=== PATIENT | female | born 1975 | race Caucasian/White ===

== ENCOUNTER 2020-04-01 14:41 | Outpatient (CLI) | payer BC, SELFPAY ==
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
== END 2020-04-01 14:42 | disposition home or self-care (01) ==
LOC: ANHIMG 14:50
PROVIDERS: PCP Family Medicine; Visit Provider Family Medicine
DX: S13.4XXA Sprain of ligaments of cervical spine, initial encounter (principal); M54.5 Low back pain; N20.0 Calculus of kidney
CPT/HCPCS: 72050; 72100

== ENCOUNTER 2020-05-05 15:16 | Outpatient (CLI) | payer BC, SELFPAY ==
--- NOTE | ~2020-05-05 | US_ITS ---
EXAMINATION: US renal BI EXAM DATE: 05/05/2020 15:46 INDICATION: Stone seen on x-ray. TECHNIQUE: Multiple grayscale and Doppler images of the kidneys were obtained (by a technologist who performed the scan) and subsequently reviewed. Comparison is made to prior examination from 05/07/2012 . FINDINGS: Right kidney: There is normal contour and echogenicity. It measures 11.1 x 4.5 x 5.0 centimeters. Hy perechoic focus with posterior shadowing measuring 6 mm, probably kidney stone. There is no hydrone phrosis. Left kidney: There is normal contour and echogenicity. It measures 10.6 x 6.4 x 5.6 centimeters. Hyp erechoic focus causing measuring about 7 mm, causing artifact, likely nephrolithiasis. There is no hydronephrosis. Bladder unremarkable. IMPRESSION: 1. Probable bilateral nephrolithiasis. Reviewed, dictated and finalized at location A.
== END 2020-05-05 15:17 | disposition home or self-care (01) ==
LOC: ANHIMG 15:18
PROVIDERS: PCP Family Medicine; Visit Provider Family Medicine
DX: M54.5 Low back pain (principal)
CPT/HCPCS: 76775

== ENCOUNTER 2020-12-14 15:23 | Outpatient (CLI) | payer BC, SELFPAY ==
--- NOTE | ~2020-12-14 | MR_ITS ---
EXAMINATION: MR lumbar spine wo con EXAM DATE: 12/14/2020 16:27 INDICATION: M54.5 - Low back pain low back pain. TECHNIQUE: Multi-sequential, multiplanar MR images of the lumbar spine were obtained without contrast . Sagittal T1, T2, T2 fat saturation images. Axial T2 weighted images. There is no prior study for comparison. FINDINGS: Small disc extrusions T11-12, T12-L1 and L1-2 with slight cephalad migration at all of thes e levels. Mild loss of these disc heights. The lower lumbar disc and vertebral body heights are well- maintained. The vertebral bodies are aligned in the AP dimension. The conus medullaris terminates at the L1/2 level and has normal signal intensity and morphology. There are no suspicious marrow signal abnormalities. Paraspinal soft tissue is unremarkable. Level by level evaluation: T12-L1: There is small right central disc extrusion. Facet arthropathy: Mild. Neural foraminal stenosis: No stenosis. Central canal stenosis: Mild. L1-L2: There is small right central disc extrusion. Facet arthropathy: Mild to moderate. Neural foraminal stenosis: No stenosis. Central canal stenosis: Mild. L2-L3: Disc does not extend beyond the endplate margin. Facet arthropathy: Mild to moderate. Neural foraminal stenosis: No stenosis. Central canal stenosis: No stenosis. L3-L4: Disc does not extend beyond the endplate margin. Facet arthropathy: Mild to moderate. Neural foraminal stenosis: No stenosis. Central canal stenosis: No stenosis. L4-L5: There is a mild diffuse disc bulge. Facet arthropathy: Mild to moderate. Neural foraminal stenosis: Mild left. Central canal stenosis: Mild. L5-S1: There is a mild diffuse disc bulge. Facet arthropathy: Mild. Neural foraminal stenosis: Mild right. Central canal stenosis: No stenosis. IMPRESSION: 1. Small thoracolumbar disc extrusions. 2. Mild to moderate lumbar facet arthropathy. Reviewed, dictated and finalized at location A.
== END 2020-12-14 15:24 ==
PROVIDERS: PCP Family Medicine; Visit Provider Family Medicine
DX: M47.817 Spondylosis without myelopathy or radiculopathy, lumbosacral region (principal); M48.07 Spinal stenosis, lumbosacral region; M47.815 Spondylosis without myelopathy or radiculopathy, thoracolumbar region; M48.05 Spinal stenosis, thoracolumbar region
CPT/HCPCS: 72148

== ENCOUNTER 2023-09-05 00:28 | Day surgery (SDC) | payer BC, SELFPAY ==
[2023-08-23 15:54] VITALS: BMI 26.6
--- NOTE | 2023-09-03 09:23 | SUR.PREOP ---
Patient called regarding upcoming procedure. Message left on patient's voicemail regarding preop instructions, appointment times, and procedure prep.
--- NOTE | 2023-09-04 14:31 | PM.HPGS ---
History of Present Illness History of Present Illness Consent: Risks, benefits, and alternatives have been discussed and questions answered. Patient agrees to proceed with procedure. Chief complaint: neoplasm screening Narrative: Ashley Nix is a 48 year old female referred for colon cancer screening. Review of Systems Review of Systems: All systems reviewed & are unremarkable except as noted in HPI and below PMFSH Past Medical History Medical History Hypothyroidism (acquired) Surgical History Surgical History S/P endometrial ablation Tubal ligation status Family History Family History Sibling Family history of gout Other Family history of cardiovascular disease Family history of malignant neoplasm Social History Social History Social History: Smoking status: Never smoker Second hand tobacco smoke exposure: No Alcohol intake: never Substance use: never Substance use type: does not use Living arrangements: with family Occupation/Education: occupation Gender identity (if verbalized by the patient): Female Sexual Orientation (if Verbalized by the Patient): Straight or Heterosexual Spiritual care concerns: No Meds Home Medications and Allergies Home Medications Medication Instructions Recorded Confirmed Type cholecalciferol (vitamin D3) 1,250 1,250 mcg PO WEEKLY 01/27/20 09/05/23 History mcg (50,000 unit) capsule levothyroxine 75 mcg tablet 75 mcg PO QMWF 12/07/20 09/05/23 History celecoxib 200 mg capsule 200 mg PO DAILY 08/23/23 09/05/23 History cholecalciferol (vitamin D3) 25 25 mcg PO DAILY 08/23/23 09/05/23 History mcg (1,000 unit) tablet (Vitamin D3) duloxetine 30 mg capsule,delayed 30 mg PO DAILY 08/23/23 09/05/23 History release levothyroxine 50 mcg tablet 50 mcg PO QTUTHSASU 08/23/23 09/05/23 History phentermine 37.5 mg tablet 37.5 mg PO DAILY 08/23/23 09/05/23 History rosuvastatin 10 mg tablet 10 mg PO DAILY 08/23/23 09/05/23 History Allergies Allergy/AdvReac Type Severity Reaction Status Date / Time Penicillins Allergy Severe Pruritic Verified 09/05/23 09:48 rash nifedipine Allergy Mild RASH AND Verified 09/05/23 09:48 ITCHING Exam Resp: Auscultation: clear to auscultation bilaterally Cardio: Rate: regular rate Rhythm: regular rhythm GI: GI Palp: Yes Soft to palpation and No Tenderness to palpation present (GI) Assessment and Plan Assessment and plan (1) Colon cancer screening: Code(s): Z12.11 - Encounter for screening for malignant neoplasm of colon Status: Acute Assessment and Plan: Colonoscopy with possible biopsy or polypectomy or cautery or injection of substances.
[2023-09-05 09:51] VITALS: BP 109/74; PULSE 88; RESP 16; TEMP 36.5; O2SAT 100
[2023-09-05] MEDS: LACTATED RINGERS 1,000 ML 150 ML IV CONT (10:01)
--- NOTE | 2023-09-05 10:22 | WPDANESEPPF ---
Anes - Initial Pre Proc Eval Procedure: Operation Date: 09/05/23 11:00 Proposed Procedures p Screening Colonoscopy - Harley Schultz MD Date/Time: 09/05/23 10:22 Surgeon: Harley Schultz MD Pre Op Diagnosis: neoplasm screening Patient Data Age: 48 Gender: F Height: 1.65 m Weight: 70.2 kg Last Vital Signs Temp 97.7 F 09/05/23 09:51 Pulse 88 09/05/23 09:51 Resp 16 09/05/23 09:51 BP 109/74 09/05/23 09:51 Pulse Ox 100 09/05/23 09:51 Allergies Allergy/AdvReac Type Severity Reaction Status Date / Time Penicillins Allergy Severe Pruritic Verified 09/05/23 09:48 rash nifedipine Allergy Mild RASH AND Verified 09/05/23 09:48 ITCHING Home Medications Medication Instructions Recorded Confirmed Type cholecalciferol (vitamin D3) 1,250 1,250 mcg PO WEEKLY 01/27/20 09/05/23 History mcg (50,000 unit) capsule levothyroxine 75 mcg tablet 75 mcg PO QMWF 12/07/20 09/05/23 History celecoxib 200 mg capsule 200 mg PO DAILY 08/23/23 09/05/23 History cholecalciferol (vitamin D3) 25 25 mcg PO DAILY 08/23/23 09/05/23 History mcg (1,000 unit) tablet (Vitamin D3) duloxetine 30 mg capsule,delayed 30 mg PO DAILY 08/23/23 09/05/23 History release levothyroxine 50 mcg tablet 50 mcg PO QTUTHSASU 08/23/23 09/05/23 History phentermine 37.5 mg tablet 37.5 mg PO DAILY 08/23/23 09/05/23 History rosuvastatin 10 mg tablet 10 mg PO DAILY 08/23/23 09/05/23 History Patient hx anesthesia problems: none Family hx anesthesia problems: none Results Review: All pre-operative results and documents have been reviewed as part of the pre-operative evaluation. [facility] Past Medical History Medical History Hypothyroidism (acquired) Surgical History Surgical History S/P endometrial ablation Tubal ligation status Family History Family History Sibling Family history of gout Other Family history of cardiovascular disease Family history of malignant neoplasm Social History Social History Social History: Smoking status: Never smoker Second hand tobacco smoke exposure: No Alcohol intake: never Substance use: never Substance use type: does not use Living arrangements: with family Occupation/Education: occupation Gender identity (if verbalized by the patient): Female Sexual Orientation (if Verbalized by the Patient): Straight or Heterosexual Spiritual care concerns: No Anes - Eval Final PreProcedure Day of Procedure 09/05/23 10:22 Patient weight: normal Heart: regular rate and rhythm Lungs: clear to auscultation Airway: Mallampati scale class II Neurological: alert and oriented Last oral intake: >/= 8 hours ASA classification: II Emergent: no Anesthetic plan: proceed Anesthesia type and monitoring: general GIVS and standard monitoring Results Review: All pre-operative results and documents have been reviewed as part of the pre-operative evaluation. Informed Consent: The patient's anesthetic plan and its attendant risks and benefits were discussed with the patient/family/POA. Questions were solicited and answers provided to the satisfaction of the patient/family/POA.
[2023-09-05 10:49] VITALS: BP 100/66; PULSE 72; RESP 17; O2SAT 98
[2023-09-05 10:59] VITALS: BP 103/70; PULSE 69; RESP 16; O2SAT 98
[2023-09-05 11:09] VITALS: BP 115/73; PULSE 70; RESP 17; O2SAT 100
== END 2023-09-05 11:24 | disposition home or self-care (01) ==
PROVIDERS: PCP Nurse Practitioner Family; Visit Provider Internal Medicine Gastroenterology
PROC: 0DJD8ZZ Inspection of Lower Intestinal Tract, Via Natural or Artificial Opening Endoscopic (ICD-10-PCS; CPT 45378; principal; 2023-09-05 11:00)
DX: Z12.11 Encounter for screening for malignant neoplasm of colon (principal); E03.9 Hypothyroidism, unspecified
CPT/HCPCS: 45378; J2704; J7120

== ENCOUNTER 2023-09-24 18:26 | Emergency (ER) | payer BC, SELFPAY ==
[2023-09-24] VITALS (13 sets, daily range): BP systolic 100–136; BP diastolic 63–88; PULSE 68–89; RESP 12–17; TEMP 36.4–36.7; O2SAT 94–100
--- NOTE | ~2023-09-24 | CT_ITS ---
EXAMINATION: CT abdomen pelvis wo con DATE: 09/24/2023 20:06 INDICATION: L flank pain, concern for L ureterolithiasis TECHNIQUE: Computed tomography (CT) of the abdomen and pelvis was performed without intravenous contr ast. Automated exposure control and iterative reconstruction technique were employed. The dose-length product was 541.29 mGy-cm. COMPARISON: None. FINDINGS: Lower thorax: Unremarkable Liver: Normal. Biliary/Gallbladder: Gallbladder is normal. No bile duct dilation. Pancreas: No mass or duct dilation. Spleen: Normal. Adrenals:No mass. Kidneys: Moderate left perinephric stranding. Moderate left pelviectasis and caliectasis. 6 mm stone in the proximal left ureter. Multiple additional nonobstructing bilateral calcifications. No suspicio us mass. No right hydronephrosis. GI tract: No small or large bowel dilation. Normal appendix. Mesentery/Peritoneum: No ascites, mass, or free air. Retroperitoneum: No mass. Pelvis: Mostly empty urinary bladder with mild wall thickening. Enlarged uterus. Soft Tissues: Soft tissues and body wall unremarkable. Bones: No acute osseous finding. IMPRESSION: 6 mm left proximal ureteral stone causing moderate obstructive uropathy. Cystitis versus urinary bladder wall thickening from incomplete distention. Possible uterine fibroids. Reviewed, dictated and finalized at location K. ORY LAY OUT ENGINEER
--- NOTE | ~2023-09-24 | XR_ITS ---
EXAM: XR abdomen/kub 1V DATE: 09/24/2023 22:04 HISTORY: L ureterolithiasis LT FLANK PAIN . COMPARISON: CT abdomen pelvis, same date. FINDINGS: Normal bowel gas pattern. No organomegaly. 3 x 6 cm calcification previously determined to be within the proximal left ureter. Regional bones and soft tissues normal for age. IMPRESSION: 3 x 6 mm left proximal ureteral stone. Reviewed, dictated and finalized at location K. NG MACHINE OPERATOR SEMIAUTOMATIC
[2023-09-24 18:45] LABS: Basophils Absolute Auto 0.1 K/mm3 (0.0-0.1); Basophils Percent Auto 0.7 % (0.2-1.2); Eosinophils Absolute Auto 0.2 K/mm3 (0-0.3); Eosinophils Percent Auto 2.3 % (0-4.4); Hematocrit 42.8 % (37.0-47.0); Hemoglobin 13.9 g/dL (12.0-15.0); Immature Granulocyte Absolute 0.02 K/mm3 (0.00-0.031); Immature Granulocyte Percent A 0.2 % (0-0.5); Lymphocytes Absolute Auto 1.67 K/mm3 (0.9-3.2); Lymphocytes Percent Auto 17.5 % (18.3-44.2); Mean Corpuscular HGB Conc 32.5 g/dl (32-36); Mean Corpuscular Hemoglobin 30.5 pg (26-34); Mean Corpuscular Volume 93.9 fl (80-100); Mean Platelet Volume 10.5 fl (7.4-10.4); Monocytes Percent Auto 10.8 % (2.6-8.5); Neutrophils Absolute Auto 6.5 K/mm3 (1.3-6.7); Neutrophils Percent Auto 68.5 % (45.5-73.1); Platelet Count Result 249 k/mm3 (150-375); Red Blood Count 4.56 M/mm3 (4.2-5.4); Red Cell Distribution Width 12.2 % (11.5-14.5); White Blood Count 9.5 K/mm3 (4.5-10.0)
--- NOTE | 2023-09-24 19:09 | ED.ABDPAIN ---
HPI - Abdominal Pain General Chief Complaint: Abdominal Pain Stated Complaint: left flank pain Time Seen by Provider: 09/24/23 18:39 History of Present Illness HPI narrative: 48-year-old female reports for evaluation for left-sided abdominal pain for the past 4 hours. Patient states the pain is constant and describes it as aching with intermittent sharp sensations. She is rating the pain as 7/10. She took ibuprofen 2 hours prior to arrival without improvement. States yesterday she had hematuria and discomfort with urination as well as frequency and urgency, however that has resolved today. She denies fever, nausea or vomiting, diarrhea, chest pain or shortness of breath, dysuria. Her last bowel movement was today and normal. Related Data Home Medications Medication Instructions Recorded Confirmed cholecalciferol (vitamin D3) 1,250 1,250 mcg PO WEEKLY 01/27/20 09/05/23 mcg (50,000 unit) capsule levothyroxine 75 mcg tablet 75 mcg PO QMWF 12/07/20 09/05/23 celecoxib 200 mg capsule 200 mg PO DAILY 08/23/23 09/05/23 cholecalciferol (vitamin D3) 25 25 mcg PO DAILY 08/23/23 09/05/23 mcg (1,000 unit) tablet (Vitamin D3) duloxetine 30 mg capsule,delayed 30 mg PO DAILY 08/23/23 09/05/23 release levothyroxine 50 mcg tablet 50 mcg PO QTUTHSASU 08/23/23 09/05/23 phentermine 37.5 mg tablet 37.5 mg PO DAILY 08/23/23 09/05/23 rosuvastatin 10 mg tablet 10 mg PO DAILY 08/23/23 09/05/23 Allergies Allergy/AdvReac Type Severity Reaction Status Date / Time Penicillins Allergy Severe Pruritic Verified 09/24/23 18:38 rash nifedipine Allergy Mild RASH AND Verified 09/24/23 18:38 ITCHING Review of Systems Review of Systems: CONSTITUTIONAL: Denies fever, chills, or sweats. EYES: Denies visual changes, redness, or discharge. ENT: Denies rhinorrhea, congestion, sore throat, or otalgia. CARDIOVASCULAR: Denies chest pain, palpitations, or edema. RESPIRATORY: Denies cough or dyspnea. GASTROINTESTINAL: See HPI GENITOURINARY: see HPI SKIN: Denies rash or itching. MUSCULOSKELETAL: Denies back pain, joint pain, or myalgia. NEUROLOGIC: Denies headache, numbness, or weakness. PSYCHIATRIC: Denies anxiety or depression. [facility] Past Medical History Medical History Hypothyroidism (acquired) Surgical History Surgical History S/P endometrial ablation Tubal ligation status Family History Family History Sibling Family history of gout Other Family history of cardiovascular disease Family history of malignant neoplasm Social History Social History Social History: Smoking status: Never smoker Second hand tobacco smoke exposure: No Alcohol intake: never Substance use: never Substance use type: does not use Living arrangements: with family Occupation/Education: occupation Gender identity (if verbalized by the patient): Female Sexual Orientation (if Verbalized by the Patient): Straight or Heterosexual Spiritual care concerns: No Exam Narrative: GENERAL: Well-appearing, well-nourished, and in no acute distress. patient resting comfortably in exam bed. She is pleasant conversational. HEAD: Normocephalic, atraumatic. EYES: PERRLA and EOMI. ENT: Nares clear, no rhinorrhea or epistaxis. Mucous membranes moist. NECK: Supple. CHEST: Clear to auscultation. No respiratory distress. HEART: Regular rate and rhythm. No murmur heard. Normal peripheral pulses. ABDOMEN: Normoactive bowel sounds. Abdomen soft with tenderness in the left upper quadrant And flank pain. No guarding, rebound or rigidity. No CVA tenderness. No overlying skin changes. EXTREMITIES: Normal range of motion. No edema. SKIN: Warm, dry, no rash. NEURO: No focal deficits. Alert and oriented x3
[2023-09-24 19:18] LABS: Alanine Aminotransferase 18 U/L (6-35); Albumin Level 3.9 g/dL (3.5-5.1); Alkaline Phosphatase 50 U/L (38-126); Anion Gap 5 mmol/L (8-16); Aspartate Amino Transferase 23 U/L (14-36); Bilirubin,Total 0.5 mg/dL (0.2-1.3); Blood Urea Nitrogen 17 mg/dL (7-17); Calcium 8.9 mg/dL (8.4-10.2); Carbon Dioxide 27 mmol/L (22-30); Chloride 107 mmol/L (98-107); Estimated CRCL calculation 69 ml/min; Estimated Glomerular Filt Rate > 60; Glucose 94 mg/dL (65-110); Lipase 103 U/L (23-300); Potassium 4.1 mmol/L (3.4-5.0); Sodium 139 mmol/L (137-145)
[2023-09-24] MEDS: SODIUM CHLORIDE 0.9% IV 1,000 ML 999 ML IV CONT (19:19)
[2023-09-24] MEDS: MORPHINE SULFATE (*CRX) 4 MG/ML INJ IV PUSH (19:19)
[2023-09-24 19:20] LABS: Appearance Urine Turbid (Clear); Bacteria Urine 1+ /hpf; Bilirubin Urine Negative (Negative); Blood Urine 3+ (Negative); Calcium Oxalate Crystals Urine Present /hpf; Color Urine Yellow (Yellow); Glucose Urine UA Negative (Negative); Ketones Urine Trace mg/dL (Negative); Leukocyte Esterase Ur 1+ LEU/UL (Negative); Need Manual Microscopic Reviewed; Nitrate Urine Negative (Negative); Non Pathogenic Casts 0-2; Protein Urine 1+ mg/dL (Negative); RBC Urine >100 /hpf (0-2); Specific Grav Ur 1.022 (1.001-1.035); Squamous Epithelial Cell Urine Moderate /hpf (Few); pH Urine 5.5 (5.0-9.0)
[2023-09-24 19:22] LABS: Add Urine Microscopic? YES
--- NOTE | 2023-09-24 20:42 | PC.NURSE ---
Patient called out to nurses station and stated her pain was 10/10. Notified EDP KATI Olivarez
[2023-09-24] MEDS: HYDROmorphone HCL INJ (*CRX) 1 MG/ML SYR 0.5 MG IV PUSH ×2 (20:47→21:04)
== END 2023-09-24 22:28 | disposition home or self-care (01) ==
PROVIDERS: Emergency Medicine; Emergency Provider Physician Assistant; PCP Nurse Practitioner Family
DX: N13.9 Obstructive and reflux uropathy, unspecified (principal); N20.1 Calculus of ureter; E03.9 Hypothyroidism, unspecified; R93.41 Abnormal radiologic findings on diagnostic imaging of renal pelvis, ureter, or bladder; R93.89 Abnormal findings on diagnostic imaging of other specified body structures
CPT/HCPCS: 36415; 74018; 74176; 80053; 81001; 81025; 83690; 85025; 87086; 87088; 96361; 96374; 96375; 96376; 99284; J1170; J2270; J7030

== ENCOUNTER 2023-10-01 16:33 | Outpatient (CLI) | payer OTHER, BC, SELFPAY ==
--- NOTE | ~2023-10-01 | XR_ITS ---
EXAMINATION: XR abdomen/kub 1V DATE: 10/01/2023 16:56 INDICATION: Chronic sacroiliac joint pain. TECHNIQUE: A supine view of the abdomen on 2 radiographs was obtained. COMPARISON: CT and KUB dated 09/24/2023 FINDINGS: No appreciable change in a few bilateral renal stones or of a 6 mm proximal left ureteral stone. Unch anged tiny atherosclerotic calcification at the right pelvis. Moderate amount of stool scattered thro ughout the colon. No dilated loops of gas-filled bowel to suggest obstruction. Minimal bilateral hip and sacroiliac osteoarthritis. No erosions at the sacral iliac joints to suggest an inflammatory sacr oiliitis. Bone island at the left femoral head. IMPRESSION: 1. Unchanged bilateral urolithiasis including a 6 mm proximal left ureteral stone. Reviewed, dictated and finalized at location A. GRINDER IMPRESSION: 1. Unchanged bilateral urolithiasis including a 6 mm proximal left ureteral sto ne.
== END 2023-10-01 16:34 | disposition home or self-care (01) ==
LOC: ANHIMG 16:44
PROVIDERS: PCP Nurse Practitioner Family; Visit Provider Urology
DX: M53.3 Sacrococcygeal disorders, not elsewhere classified (principal); N20.1 Calculus of ureter
CPT/HCPCS: 74018

== ENCOUNTER 2023-10-05 03:53 | Day surgery (SDC) | payer OTHER, BC, SELFPAY ==
--- NOTE | 2023-10-02 16:40 | PC.NURSE ---
Report to the Outpatient Waiting Room, entrance under the green pavilion located off [facility], at time 1200 on date 10/05/23. Planned Procedure Time: 1400. Time changes happen often and if your time is changed the preop area will call you the afternoon before. - You and your visitor will be asked to self-screen and do not enter if you have any COVID symptoms. - A mask is optional within the hospital at this time. Patients may have clear liquids (water, carbonated beverages, clear teas, apple juice) until 3 hours prior to surgery with a maximum of 20 ounces. 1100 - No food from midnight until time of surgery - Infants may have breast milk until 4 hours before surgery, formula 6 hours prior to surgery. - Children will be allowed to drink immediately following surgery. If applicable, please bring a bottle or sippy cup to assist with drinking. Juice, water, soda, and popsicles are readily available. For infants on formula, please bring formula the day of surgery. Pacifiers are allowed. Take the following medications with a SIP of water the morning of surgery: synthroid, hydrocodone DO NOT STOP ANY OF YOUR OTHER PRESCRIPTION MEDICATIONS PRIOR TO SURGERY ?EXCEPT THE FOLLOWING Medications to discontinue per physician celebrex (asking Dr. Taylor about stopping), Vitamin D (last dose Sunday09/30/23) Please no make-up, nail pitcairn islander, hairspray, perfume, deodorant, or body powder the day of surgery. No jewelry (including any body piercings) or valuables the day of surgery, leave them at home. Please take a shower or bath the night before, or the morning of, surgery with an antibacterial soap. Wear comfortable, loose fitting clothing. Children are encouraged to wear pajamas. - Jewelry must be removed prior to entering the operating room. Rings and piercings that are not removed may be cut off. - The hospital will not accept responsibility for valuables. - Please leave all valuables, including medications, at home the day of surgery. If you are going home after surgery, a licensed public transit trolley driver must drive you home. - NO public transportation without another adult if you receive anesthesia. - We recommend that an adult stay with you for 24 hours following discharge. - We also recommend that you do not drive, make important decision, drink alcoholic beverages, or take any drugs that were not prescribed by your health care provider for at least 24 hours after your discharge time. For Pediatric surgeries, we recommend two adults accompany the child home. Follow any additional instructions given to you from your surgeon. If you or anyone in your household have experienced Covid symptoms in the past week, please notify your surgeon or the nurse liaison at the phone number below for possible testing. Telephone instructions given to Patient- Ashley Nix and asked if any additional questions and then verbalized understanding. Patient advised to call surgeon office or pre surgery nurse liaison [phone] if any additional questions.
[2023-10-02 16:50] VITALS: BMI 25.8
[2023-10-05] VITALS (11 sets, daily range): BP systolic 102–117; BP diastolic 68–76; PULSE 60–81; RESP 13–18; TEMP 36.1–37.4; O2SAT 96–100
--- NOTE | ~2023-10-05 | XR_ITS ---
Supine and upright views of the abdomen Clinical history: Lithotripsy COMPARISON: 10/01/2023 Findings: Bowel gas pattern is nonspecific. No evidence for obstruction or free air. Bilateral nephro lithiasis is unchanged. Probable mid to proximal left ureteral stone, unchanged. Osseous structures a re intact. Impression: Stable bilateral nephrolithiasis. Stable probable proximal to mid left ureteral stone. Reviewed, dictated and finalized at [facility]. [employer] NETWORK ADMINISTRATOR Impression: Stable bilateral nephrolithiasis. Stable probable proximal to mid left ureteral stone.
--- NOTE | 2023-10-05 06:10 | WPDHPUPDATE1 ---
History and Physical Update Update Date/Time: 10/05/23 06:10 History and Physical has been reviewed, including an updated exam of the patient. There are NO changes in the patient's condition. Risks, benefits, and alternatives have been discussed and questions answered. Patient agrees to proceed with procedure.
[2023-10-05] MEDS: LACTATED RINGERS 1,000 ML 30 ML IV CONT (10:05)
--- NOTE | 2023-10-05 10:35 | WPDANESEPPF ---
Anes - Initial Pre Proc Eval Procedure: Operation Date: 10/05/23 11:00 Proposed Procedures p Left Extracorporeal Shock Wave Lithotripsy - Al Taylor MD Date/Time: 10/05/23 10:35 Surgeon: Al Taylor MD Pre Op Diagnosis: left ureteral stones Patient Data Age: 48 Gender: F Height: 1.65 m Weight: 69.3 kg Last Vital Signs Temp 37.4 C 10/05/23 09:30 Pulse 81 10/05/23 09:30 Resp 16 10/05/23 09:30 BP 106/68 10/05/23 09:30 Pulse Ox 100 10/05/23 09:30 O2 Del Method Room Air 10/05/23 09:30 Allergies Allergy/AdvReac Type Severity Reaction Status Date / Time Penicillins Allergy Severe Pruritic Verified 10/05/23 09:33 rash nifedipine Allergy Mild RASH AND Verified 10/05/23 09:33 ITCHING Home Medications Medication Instructions Recorded Confirmed Type cholecalciferol (vitamin D3) 1,250 1,250 mcg PO WEEKLY 01/27/20 10/05/23 History mcg (50,000 unit) capsule levothyroxine 75 mcg tablet 75 mcg PO QMWF 12/07/20 10/05/23 History celecoxib 200 mg capsule 200 mg PO HS 08/23/23 10/05/23 History duloxetine 30 mg capsule,delayed 30 mg PO HS 08/23/23 10/05/23 History release levothyroxine 50 mcg tablet 50 mcg PO QTUTHSASU 08/23/23 10/05/23 History phentermine 37.5 mg tablet 37.5 mg PO HS 08/23/23 10/05/23 History rosuvastatin 10 mg tablet 10 mg PO HS 08/23/23 10/05/23 History hydrocodone 5 mg-acetaminophen 325 1 tablet PO Q6H PRN pain #14 tabs 09/24/23 10/05/23 Rx mg tablet ondansetron 4 mg disintegrating 4 mg PO Q8H #14 tabs 09/24/23 10/05/23 Rx tablet tamsulosin 0.4 mg capsule (Flomax) 0.4 mg PO HS #14 caps 09/24/23 10/05/23 Rx Patient hx anesthesia problems: none Family hx anesthesia problems: none Results Review: All pre-operative results and documents have been reviewed as part of the pre-operative evaluation. [facility] Past Medical History Medical History Hypothyroidism (acquired) Surgical History Surgical History S/P endometrial ablation Tubal ligation status Family History Family History Sibling Family history of gout Other Family history of cardiovascular disease Family history of malignant neoplasm Social History Social History Social History: Smoking status: Never smoker Second hand tobacco smoke exposure: No Alcohol intake: never Substance use: never Substance use type: does not use Living arrangements: with family Occupation/Education: occupation Gender identity (if verbalized by the patient): Female Sexual Orientation (if Verbalized by the Patient): Straight or Heterosexual Spiritual care concerns: No Anes - Eval Final PreProcedure Day of Procedure 10/05/23 10:35 Patient weight: normal Heart: regular rate and rhythm Lungs: clear to auscultation Airway: Mallampati scale class II Neurological: alert and oriented ASA classification: III Emergent: no Anesthetic plan: proceed Anesthesia type and monitoring: general LMA and standard monitoring Results Review: All pre-operative results and documents have been reviewed as part of the pre-operative evaluation. Informed Consent: The patient's anesthetic plan and its attendant risks and benefits were discussed with the patient/family/POA. Questions were solicited and answers provided to the satisfaction of the patient/family/POA.
[2023-10-05] MEDS: ceFAZolin 2 GM/D5W 50 ML 2 GM/50 ML BAG IVPB (10:52)
--- NOTE | 2023-10-05 11:14 | W.PM.PROC2 ---
Procedure Note - Detailed Date of Procedure 10/05/23 Pre-op Diagnosis Left ureteral stone Post-op Diagnosis Same Procedure Performed Left ESWL Surgeon Al Taylor MD Anesthesia General Description of Procedure The patient was brought to the operative suite where she was placed in the supine position on the Dornier lithotripsy table. The focal point of the lithotripter was placed at a 5mm left mid-ureteral calculus. A total of 2000 shocks were delivered at a power setting of . There appeared to be good fragmentation of the stone. The patient tolerated the procedure well and was taken to the recovery room in good condition. Drains No Packing No Pathology None sent Complications No immediate complications Condition Stable Disposition PACU
[2023-10-05] MEDS: oxyCODONE HCL (*CRX) 5 MG TAB IR PO (13:20)
== END 2023-10-05 13:58 | disposition home or self-care (01) ==
PROVIDERS: PCP Nurse Practitioner Family; Visit Provider Urology
PROC: (CPT 50590; principal; 2023-10-05 11:00)
DX: N20.1 Calculus of ureter (principal)
CPT/HCPCS: 50590; 36415; 74018; 85610; 85730; A9270; J0690; J1100; J2250; J2405; J2704; J3010; J7120

== ENCOUNTER 2023-10-05 06:57 | Outpatient (CLI) | payer OTHER, BC, SELFPAY ==
[2023-10-05 07:48] LABS: Prothrombin Time 13.7 Seconds (11.1-14.7)
[2023-10-05 07:50] LABS: Partial Thromboplastin Time 32.6 SECONDS (22.3-36.8)
== END 2023-10-05 06:58 | disposition home or self-care (01) ==
LOC: ANHLAB 06:59
PROVIDERS: PCP Nurse Practitioner Family; Visit Provider Urology
DX: N20.1 Calculus of ureter (principal); Z01.818 Encounter for other preprocedural examination
CPT/HCPCS: 36415; 85610; 85730

== ENCOUNTER → 2023-10-22 16:39 | Outpatient (CLI) | payer OTHER, BC, SELFPAY ==
--- NOTE | ~2023-10-22 | XR_ITS ---
EXAM: XR abdomen/kub 1V DATE: 10/22/2023 16:55 HISTORY: KIDNEY STONE . COMPARISON: 10/05/2023; CT abdomen pelvis 09/24/2023. FINDINGS: Clear lung bases. Normal bowel gas pattern. No organomegaly. Multiple calcifications overl tammi the left renal shadow measuring up to 5 mm. Multiple calcifications overlying the right renal sh adow measuring up to 9 mm. Mild bilateral hip osteoarthritic arthritis. IMPRESSION: Grossly unchanged bilateral nephrolithiasis. Reviewed, dictated and finalized at location [facility]. [employer] ASSOCIATE
== END ==
PROVIDERS: PCP Urology; Visit Provider Urology
DX: N20.0 Calculus of kidney (principal)
CPT/HCPCS: 74018

== ENCOUNTER 2023-12-10 15:45 | Outpatient (CLI) | payer OTHER, BC, SELFPAY ==
[2023-12-10 16:10] LABS: INR 1.1; Prothrombin Time 14.4 Seconds (11.1-14.7)
[2023-12-10 16:11] LABS: Partial Thromboplastin Time 33.1 Seconds (22.3-36.8)
== END 2023-12-10 15:46 | disposition home or self-care (01) ==
LOC: ANHLAB 15:47
PROVIDERS: PCP Nurse Practitioner Family; Visit Provider Urology
DX: N20.0 Calculus of kidney (principal); Z01.818 Encounter for other preprocedural examination
CPT/HCPCS: 36415; 85610; 85730; 87086

== ENCOUNTER 2023-12-14 00:15 | Day surgery (SDC) | payer OTHER, BC, SELFPAY ==
[2023-12-04 15:13] VITALS: BMI 25.4
--- NOTE | 2023-12-04 15:15 | PC.NURSE ---
Report to the Outpatient Waiting Room, entrance under the green pavilion located off [facility], at time 6:00 on date 12/14/23. Planned Procedure Time: 7:30. Time changes happen often and if your time is changed the preop area will call you the afternoon before. - You and your visitor will be asked to self-screen and do not enter if you have any COVID symptoms. - A mask is optional within the hospital at this time. Patients may have clear liquids (water, carbonated beverages, clear teas, apple juice) until 3 hours prior to surgery (4:30) with a maximum of 20 ounces. - No food from midnight until time of surgery Take the following medications with a SIP of water the morning of surgery: LEVOTHYROXINE DO NOT STOP ANY OF YOUR OTHER PRESCRIPTION MEDICATIONS PRIOR TO SURGERY ?EXCEPT THE FOLLOWING Medications to discontinue per physician: VITAMINS Date to take last dose: 12/10/[address] GARCES REGARDING MELOXICAM Please no make-up, nail turkish, hairspray, perfume, deodorant, or body powder the day of surgery. No jewelry (including any body piercings) or valuables the day of surgery, leave them at home. Please take a shower or bath the night before, or the morning of, surgery with an antibacterial soap. Wear comfortable, loose fitting clothing. - Jewelry must be removed prior to entering the operating room. Rings and piercings that are not removed may be cut off. - The hospital will not accept responsibility for valuables. - Please leave all valuables, including medications, at home the day of surgery. If you are going home after surgery, a licensed wrecking car driver must drive you home. - NO public transportation without another adult if you receive anesthesia. - We recommend that an adult stay with you for 24 hours following discharge. - We also recommend that you do not drive, make important decision, drink alcoholic beverages, or take any drugs that were not prescribed by your health care provider for at least 24 hours after your discharge time. Follow any additional instructions given to you from your surgeon. If you or anyone in your household have experienced Covid symptoms in the past week, please notify your surgeon or the nurse liaison at the phone number below for possible testing. Telephone instructions given to GALEN CAMACHO and asked if any additional questions and then verbalized understanding. Patient advised to call surgeon office or pre surgery nurse liaison [phone] if any additional questions.
--- NOTE | 2023-12-06 09:34 | PM.HPGS ---
History of Present Illness History of Present Illness Consent: Risks, benefits, and alternatives have been discussed and questions answered. Patient agrees to proceed with procedure. Chief complaint: Rt Renal Stone Narrative: Ashley Nix is a 48 year old female who was admitted [facility] in late August 2023 with a painful obstructing left proximal ureteral stone. She has since undergone left ESWL for that stone. She has additional stones in the right kidney and opts for ESWL to the right kidney. She is aware the risk including, limited to, need for additional procedures, hematuria and perinephric hematoma. Review of Systems Cardiovascular: Cardiovascular: Denies chest pain, Denies lightheadedness, Denies palpitations and Denies dyspnea Respiratory: Respiratory: Denies dyspnea Gastrointestinal: Gastrointestinal: Denies diarrhea, Denies nausea and Denies vomiting Genitourinary: Genitourinary: Denies hematuria and Denies dysuria Endocrine: Endocrine: Denies palpitations PMFSH Past Medical History Medical History Hypothyroidism (acquired) Surgical History Surgical History S/P endometrial ablation Tubal ligation status Family History Family History Sibling Family history of gout Other Family history of cardiovascular disease Family history of malignant neoplasm Social History Social History Social History: Smoking status: Never smoker Second hand tobacco smoke exposure: No Alcohol intake: never Substance use: never Substance use type: does not use Living arrangements: with family Occupation/Education: occupation Gender identity (if verbalized by the patient): Female Sexual Orientation (if Verbalized by the Patient): Straight or Heterosexual Spiritual care concerns: No Meds Home Medications and Allergies Home Medications Medication Instructions Recorded Confirmed Type cholecalciferol (vitamin D3) 1,250 1,250 mcg PO WEEKLY 01/27/20 12/04/23 History mcg (50,000 unit) capsule levothyroxine 75 mcg tablet 75 mcg PO QMWF 12/07/20 12/04/23 History duloxetine 30 mg capsule,delayed 30 mg PO HS 08/23/23 12/04/23 History release levothyroxine 50 mcg tablet 50 mcg PO QTUTHSASU 08/23/23 12/04/23 History phentermine 37.5 mg tablet 37.5 mg PO HS 08/23/23 12/04/23 History meloxicam 7.5 mg tablet 7.5 mg PO DAILY 12/04/23 12/04/23 History Allergies Allergy/AdvReac Type Severity Reaction Status Date / Time Penicillins Allergy Severe Pruritic Verified 12/04/23 15:10 rash nifedipine Allergy Mild RASH AND Verified 12/04/23 15:10 ITCHING Exam Const: General: no acute distress Resp: Effort & Inspection: normal respiratory effort GI: Inspection: non-distended GI Palp: No abdominal tenderness and No Guarding due to palpation present (GI) Auscultation: normal bowel sounds Assessment and Plan Assessment and plan (1) Right kidney stone: Code(s): N20.0 - Calculus of kidney Status: Acute Assessment and Plan: Right ESWL
[2023-12-14] VITALS (8 sets, daily range): BP systolic 100–129; BP diastolic 47–72; PULSE 56–84; RESP 12–20; TEMP 36.3–36.6; O2SAT 100
--- NOTE | ~2023-12-14 | XR_ITS ---
Supine and upright views of the abdomen Clinical history: Lithotripsy COMPARISON: 10/22/2023 Findings: Bowel gas pattern is nonspecific. No evidence for obstruction or free air. Small bilateral renal stones are present, similar to prior exam. Osseous structures are intact. Impression: Small bilateral renal stones. Reviewed, dictated and finalized at [facility]. Impression: Small bilateral renal stones.
--- NOTE | 2023-12-14 06:14 | WPDHPUPDATE1 ---
History and Physical Update Update Date/Time: 12/14/23 06:14 History and Physical has been reviewed, including an updated exam of the patient. There are NO changes in the patient's condition. Risks, benefits, and alternatives have been discussed and questions answered. Patient agrees to proceed with procedure.
[2023-12-14] MEDS: LACTATED RINGERS 1,000 ML 30 ML IV CONT (06:30)
--- NOTE | 2023-12-14 06:56 | WPDANESEPPF ---
Anes - Initial Pre Proc Eval Procedure: Operation Date: 12/14/23 07:30 Proposed Procedures p Right Renal Extracorporeal Shock Wave Lithotripsy - Al Taylor MD Date/Time: 12/14/23 06:56 Surgeon: Al Taylor MD Pre Op Diagnosis: Rt Renal Stone Patient Data Age: 48 Gender: F Height: 1.65 m Weight: 69.3 kg Allergies Allergy/AdvReac Type Severity Reaction Status Date / Time Penicillins Allergy Severe Pruritic Verified 12/04/23 15:10 rash nifedipine Allergy Mild RASH AND Verified 12/04/23 15:10 ITCHING Home Medications Medication Instructions Recorded Confirmed Type cholecalciferol (vitamin D3) 1,250 1,250 mcg PO WEEKLY 01/27/20 12/04/23 History mcg (50,000 unit) capsule levothyroxine 75 mcg tablet 75 mcg PO QMWF 12/07/20 12/04/23 History duloxetine 30 mg capsule,delayed 30 mg PO HS 08/23/23 12/04/23 History release levothyroxine 50 mcg tablet 50 mcg PO QTUTHSASU 08/23/23 12/04/23 History phentermine 37.5 mg tablet 37.5 mg PO HS 08/23/23 12/04/23 History meloxicam 7.5 mg tablet 7.5 mg PO DAILY 12/04/23 12/04/23 History Patient hx anesthesia problems: none Family hx anesthesia problems: none Results Review: All pre-operative results and documents have been reviewed as part of the pre-operative evaluation. [facility] Past Medical History Medical History Hypothyroidism (acquired) Surgical History Surgical History (Updated 12/14/23 @ 06:57 by Isma García MD) H/O lithotripsy S/P endometrial ablation Tubal ligation status Family History Family History Sibling Family history of gout Other Family history of cardiovascular disease Family history of malignant neoplasm Social History Social History Social History: Smoking status: Never smoker Second hand tobacco smoke exposure: No Alcohol intake: never Substance use: never Substance use type: does not use Living arrangements: with family Occupation/Education: occupation Gender identity (if verbalized by the patient): Female Sexual Orientation (if Verbalized by the Patient): Straight or Heterosexual Spiritual care concerns: No Anes - Eval Final PreProcedure Day of Procedure 12/14/23 06:56 Patient weight: normal Heart: regular rate and rhythm Lungs: clear to auscultation Airway: Mallampati scale class II Neurological: alert and oriented Last oral intake: >/= 8 hours ASA classification: II Emergent: no Anesthetic plan: proceed Anesthesia type and monitoring: general LMA and standard monitoring Results Review: All pre-operative results and documents have been reviewed as part of the pre-operative evaluation. Informed Consent: The patient's anesthetic plan and its attendant risks and benefits were discussed with the patient/family/POA. Questions were solicited and answers provided to the satisfaction of the patient/family/POA.
[2023-12-14] MEDS: ceFAZolin 2 GM/D5W 50 ML 2 GM/50 ML BAG IVPB (07:22)
--- NOTE | 2023-12-14 07:46 | W.PM.PROC2 ---
Procedure Note - Detailed Date of Procedure 12/14/23 Pre-op Diagnosis Rt. Renal Stones Post-op Diagnosis Same Procedure Performed Right ESWL Surgeon Al Taylor MD Anesthesia General Description of Procedure The patient was brought to the operative suite where she was placed in the supine position on the Dornier lithotripsy table. The focal point of the lithotripter was placed at at 2 stones in her right kidney - each measuring ~4mm. A total of 2500 shocks were delivered at a power setting of 4 - splitting shocks between the 2 stones. There appeared to be good fragmentation of the stone. The patient tolerated the procedure well and was taken to the recovery room in good condition. Drains No Packing No Pathology None sent Complications No immediate complications Condition Stable Disposition PACU
== END 2023-12-14 09:45 | disposition home or self-care (01) ==
PROVIDERS: Visit Provider Urology
PROC: (CPT 50590; principal; 2023-12-14 07:30)
DX: N20.0 Calculus of kidney (principal); E03.9 Hypothyroidism, unspecified
CPT/HCPCS: 50590; 36415; 74018; 85610; 85730; 87086; J0690; J1100; J2250; J2405; J2704; J3010; J7120

== ENCOUNTER 2023-12-24 13:56 | Outpatient (CLI) | payer OTHER, BC, SELFPAY ==
--- NOTE | ~2023-12-24 | XR_ITS ---
Supine and upright views of the abdomen Clinical history: Renal stone COMPARISON: 12/14/2023 Findings: Bowel gas pattern is nonspecific. No evidence for obstruction or free air. Stable small del ateral renal stones. Osseous structures are intact. Impression: Stable small bilateral renal stones. Reviewed, dictated and finalized at [facility]. Impression: Stable small bilateral renal stones.
== END 2023-12-24 13:57 ==
LOC: MICIMG 13:58
PROVIDERS: PCP Urology; Visit Provider Urology
DX: N20.0 Calculus of kidney (principal)
CPT/HCPCS: 74018

== ENCOUNTER 2024-03-31 14:04 | Outpatient (CLI) | payer OTHER, BC, SELFPAY ==
--- NOTE | ~2024-03-31 | XR_ITS ---
XR shoulder RT min 2V Ordering provider: Rossana Romero History: . Acute R shoulder pain . Comparison: None. FINDINGS: BONES: No acute fracture or dislocation. JOINT SPACES: The acromioclavicular joint is normal. The glenohumeral joint is normal. SOFT TISSUES: Normal. IMPRESSION: No acute osseous abnormality right shoulder. Reviewed, dictated and finalized at location [facility].
== END 2024-03-31 14:05 ==
DX: M25.511 Pain in right shoulder (principal)
CPT/HCPCS: 73030